=== PATIENT | male | born 1995 | race Caucasian/White ===

== ENCOUNTER 2021-09-25 15:01 | Outpatient (CLI) | payer OTHER, SELFPAY ==
--- NOTE | ~2021-09-25 | XR_ITS ---
XR tibia fibula LT 2V DATE: 09/25/2021 15:24 INDICATION: Anterior midshaft injury, pain TECHNIQUE: AP and lateral views COMPARISON: None FINDINGS: No fracture or dislocation, periosteal reaction or bone destruction, radiopaque soft tissue foreign body or subcutaneous emphysema. Normal alignment at the knee and ankle joints. IMPRESSION: Negative Reviewed, dictated and finalized at location A. IMPRESSION: Negative
== END 2021-09-25 15:02 | disposition home or self-care (01) ==
PROVIDERS: PCP Family Medicine
DX: M79.662 Pain in left lower leg (principal)
CPT/HCPCS: 73590